=== PATIENT | female | born 1965 | race Caucasian/White ===

== ENCOUNTER → 2019-03-15 08:30 | Outpatient (CLI) | payer BC, SELFPAY ==
[2019-03-15 09:11] LABS: Add Manual Diff / Slide Review NO; Basophils Absolute Auto 100 /uL (0-100); Basophils Percent Auto 0.8 % (0-2); Eosinophils Absolute Auto 200 /uL (0-450); Eosinophils Percent Auto 2.4 % (2-4); Hematocrit 40.3 % (36-46); Hemoglobin 13.9 g/dL (12.0-16.0); Lymphocytes Absolute Auto 4000 /uL (1100-4500); Lymphocytes Percent Auto 54.7 % (25-40); Mean Corpuscular HGB Conc 34.4 % (30-36); Mean Corpuscular Hemoglobin 31.2 PG (26-34); Mean Corpuscular Volume 90.6 fL (80-100); Monocytes Absolute Auto 400 /uL (0-900); Monocytes Percent Auto 5.6 % (3-14); Neutrophils Absolute Auto 2700 /uL (1500-7000); Neutrophils Percent Auto 36.5 % (50-75); Platelet Count 264 X10^3/uL (150-400); Red Blood Cell Count 4.45 X10^6/uL (4.0-5.2); Red Cell Distribution Width 12.5 % (11.6-14.8); White Blood Cell Count 7.3 X10^3/uL (4.5-11.0)
[2019-03-15 09:48] LABS: Alanine Aminotransferase 25 IU/L (9-52); Albumin 4.2 g/dL (3.5-5.0); Albumin Globulin Ratio 1.4 (1.0-2.8); Alkaline Phosphatase 76 U/L (38-126); Aspartate Aminotransferase 21 IU/L (14-36); BUN Creatinine Ratio 15.7 (6-22); Bilirubin Total 0.4 mg/dL (0.2-1.3); Blood Urea Nitrogen 11 mg/dL (7-17); Calcium 9.4 mg/dL (8.4-10.2); Carbon Dioxide 28 mmol/L (22-32); Chloride 105 mmol/L (98-107); Cholesterol 220 mg/dL (140-199); Estimated Glomerular Filt Rate > 60.0 mL/min (>60); Globulin 2.9 g/dL (1.7-4.1); Glucose 98 mg/dL (70-100); HDL Cholesterol 38 mg/dL (40-60); HEMOLYSIS < 15 (0-50); LDL Cholesterol Calculated 151 mg/dL (<100); Potassium 4.4 mmol/L (3.4-5.1); Sodium 141 mmol/L (137-145); Total Protein 7.1 g/dL (6.3-8.2); Triglycerides 156 mg/dL (35-150)
[2019-03-15 10:16] LABS: TSH w/ Reflex to FT4 4.37 uIU/mL (0.47-4.68)
== END ==
PROVIDERS: PCP Family Medicine; Visit Provider Family Medicine
DX: F95.9 Tic disorder, unspecified (principal); Z00.00 Encounter for general adult medical examination without abnormal findings
CPT/HCPCS: 36415; 80053; 80061; 84443; 85025

== ENCOUNTER → 2019-04-12 16:21 | Outpatient (CLI) | payer BC, SELFPAY ==
--- NOTE | 2019-04-12 16:23 | DI.MG.S_ITS ---
BILATERAL DIGITAL SCREENING MAMMOGRAM 3D/2D WITH CAD: 04/12/2019 CLINICAL: Routine screening. Baseline exam. No prior exams were available for comparison. The tissue of both breasts is extremely dense, which lowers the sensitivity of mammography. Current study was also evaluated with a Computer Aided Detection (CAD) system. There is a benign intramammary node in the right breast. No significant masses, calcifications, or other findings are seen in either breast. IMPRESSION: There is no mammographic evidence of malignancy. A 1 year screening mammogram is recommended. This exam was interpreted at Station ID: [id number]. NOTE: For mammograms, a report in lay terms will be sent to the patient. Approximately 15% of breast malignancies will not be visualized mammographically. In the management of a palpable breast mass, a negative mammogram must not discourage biopsy of a clinically suspicious lesion. Electronically Signed By: Pj [email or web address]:04/12/2019 17:42:02 letter sent: Normal Exam ACR BI-RADS Category 2: Benign Finding(s) 3342F
== END ==
PROVIDERS: PCP Family Medicine; Visit Provider Family Medicine
DX: Z12.31 Encounter for screening mammogram for malignant neoplasm of breast (principal)
CPT/HCPCS: 77063; 77067

== ENCOUNTER → 2020-11-18 14:15 | Outpatient (CLI) | payer BC, SELFPAY ==
[2020-11-18 15:10] LABS: Add Manual Diff / Slide Review NO; Basophils Absolute Auto 100 /uL (0-100); Basophils Percent Auto 0.7 % (0-2); Eosinophils Absolute Auto 100 /uL (0-450); Eosinophils Percent Auto 1.4 % (2-4); Hemoglobin 14.6 g/dL (12.0-16.0); Lymphocytes Absolute Auto 3600 /uL (1100-4500); Lymphocytes Percent Auto 43.8 % (25-40); Mean Corpuscular HGB Conc 33.1 % (30-36); Mean Corpuscular Hemoglobin 30.2 PG (26-34); Monocytes Absolute Auto 400 /uL (0-900); Monocytes Percent Auto 5.4 % (3-14); Neutrophils Absolute Auto 4000 /uL (1500-7000); Neutrophils Percent Auto 48.7 % (50-75); Platelet Count 310 X10^3/uL (150-400); Red Blood Cell Count 4.83 X10^6/uL (4.0-5.2); Red Cell Distribution Width 12.6 % (11.6-14.8); White Blood Cell Count 8.1 X10^3/uL (4.5-11.0)
[2020-11-18 15:38] LABS: Alanine Aminotransferase 20 IU/L (<35); Albumin 4.5 g/dL (3.5-5.0); Albumin Globulin Ratio 1.3 (1.0-2.8); Alkaline Phosphatase 83 U/L (38-126); Aspartate Aminotransferase 26 IU/L (14-36); BUN Creatinine Ratio 18.5 (6-22); Bilirubin Total 0.4 mg/dL (0.2-1.3); Blood Urea Nitrogen 15 mg/dL (7-17); Carbon Dioxide 28 mmol/L (22-32); Chloride 105 mmol/L (98-107); Cholesterol 237 mg/dL (140-199); Estimated Glomerular Filt Rate > 60.0 mL/min (>60); Globulin 3.4 g/dL (1.7-4.1); Glucose 87 mg/dL (70-100); HDL Cholesterol 43 mg/dL (40-60); HEMOLYSIS < 15 (0-50); LDL Cholesterol Calculated 169 mg/dL (<100); Sodium 138 mmol/L (137-145); Total Protein 7.9 g/dL (6.3-8.2); Triglycerides 123 mg/dL (35-150)
[2020-11-18 17:21] LABS: TSH w/ Reflex to FT4 2.76 uIU/mL (0.47-4.68)
== END ==
PROVIDERS: PCP Family Medicine; Referring Provider Family Medicine; Visit Provider Family Medicine
DX: E78.5 Hyperlipidemia, unspecified (principal); Z13.1 Encounter for screening for diabetes mellitus; Z13.6 Encounter for screening for cardiovascular disorders
CPT/HCPCS: 36415; 80053; 80061; 84443; 85025

== ENCOUNTER 2021-10-06 13:13 | Emergency (ER) | payer BC, SELFPAY ==
[2021-10-06] VITALS (11 sets, daily range): BP systolic 137–160; BP diastolic 64–76; PULSE 79–88; RESP 5–21; TEMP 37.2; O2SAT 92–97
--- NOTE | 2021-10-06 13:20 | DI.RAD.S_ITS ---
PROCEDURE: XR CHEST 1V INDICATIONS: chest pain TECHNIQUE: One view of the chest was acquired. COMPARISON: None. FINDINGS: Surgical changes and devices: None. Lungs and pleura: Lungs are clear. No pleural effusions or pneumothorax. Mediastinum: Mediastinal contours appear normal. Heart size is normal. Bones and chest wall: No suspicious bony lesions. Overlying soft tissues appear unremarkable. IMPRESSION: Portable chest within normal limits. Dictated by: Julio Bermeo M.D. on 10/06/2021 at 12:43 Approved by: Julio Bermeo M.D. on 10/06/2021 at 12:44
[2021-10-06 13:50] LABS: Add Manual Diff / Slide Review NO; Basophils Absolute Auto 100 /uL (0-100); Basophils Percent Auto 0.9 % (0-2); Eosinophils Absolute Auto 100 /uL (0-450); Hemoglobin 14.6 g/dL (12.0-16.0); Lymphocytes Absolute Auto 3800 /uL (1100-4500); Lymphocytes Percent Auto 38.1 % (25-40); Mean Corpuscular Hemoglobin 30.1 PG (26-34); Mean Corpuscular Volume 88.5 fL (80-100); Monocytes Absolute Auto 600 /uL (0-900); Monocytes Percent Auto 5.5 % (3-14); Neutrophils Absolute Auto 5500 /uL (1500-7000); Neutrophils Percent Auto 54.5 % (50-75); Platelet Count 333 X10^3/uL (150-400); Red Blood Cell Count 4.86 X10^6/uL (4.0-5.2); Red Cell Distribution Width 12.9 % (11.6-14.8); White Blood Cell Count 10.1 X10^3/uL (4.5-11.0)
[2021-10-06 13:57] LABS: Alanine Aminotransferase 19 IU/L (<35); Albumin 4.6 g/dL (3.5-5.0); Albumin Globulin Ratio 1.3 (1.0-2.8); Alkaline Phosphatase 99 U/L (38-126); Aspartate Aminotransferase 24 IU/L (14-36); BUN Creatinine Ratio 16.7 (6-22); Bilirubin Total 0.5 mg/dL (0.2-1.3); Blood Urea Nitrogen 13 mg/dL (7-17); Calcium 9.8 mg/dL (8.4-10.2); Carbon Dioxide 30 mmol/L (22-32); Chloride 105 mmol/L (98-107); Creatine Kinase 52 U/L (30-135); Estimated Glomerular Filt Rate > 60.0 mL/min (>60); Globulin 3.5 g/dL (1.7-4.1); Glucose 92 mg/dL (70-100); HEMOLYSIS < 15 (0-50); Lipase 236 U/L (23-300); Potassium 3.9 mmol/L (3.4-5.1); Sodium 139 mmol/L (137-145); Total Protein 8.1 g/dL (6.3-8.2)
[2021-10-06 14:02] LABS: COVID19 -Nasal RAPID Negative (Negative)
[2021-10-06 14:08] LABS: Troponin I < 0.012 ng/mL (0.01-0.034)
[2021-10-06 16:20] LABS: Troponin I < 0.012 ng/mL (0.01-0.034)
--- NOTE | 2021-10-06 17:14 | ED.CHESTPAIN ---
HPI - Chest Pain General Chief Complaint: Chest Pain Stated Complaint: heart has been hurting Time Seen by Provider: 10/06/21 17:14 Source: patient Mode of arrival: Ambulatory History of Present Illness HPI narrative: 56-year-old female with no past medical history except COVID in May presenting today with chest discomfort. She is unsure how long it has been going on for but it has gotten worse she thinks. She feels a light squeezing in her chest which is worse with exertion. She says it comes and goes it sometimes is at rest sometimes with exertion. She recently traveled through airports and noticed that her chest discomfort and shortness of breath was worse with longer distances. She describes it as a left-sided squeezing chest discomfort. Even now she feels as light discomfort Related Data Previous Rx's Medication Instructions Recorded diazepam 5 mg tablet (Valium) 5 mg PO SEE INSTRUCTIONS PRN #5 tab 08/31/18 Allergies Allergy/AdvReac Type Severity Reaction Status Date / Time Penicillins Allergy Severe Anaphylaxis, Verified 10/06/21 17:47 Hives codeine [CODEINE] Allergy Mild NAUSEA Verified 11/19/20 10:04 Sulfa (Sulfonamide Allergy Mild HIVES Verified 11/19/20 10:04 Antibiotics) [SULFA (SULFONAMIDE ANTIBIOTICS)] Review of Systems Review of Systems Narrative: GENERAL: Denies chills, fatigue, malaise, fever, sweats, travel HEENT: Denies sinus pain, ear pain, sore throat, difficulty swallowing, neck pain RESPIRATORY: see HPI CARDIOVASCULAR: see HPI GASTROINTESTINAL: Denies nausea, vomiting, abdominal pain, diarrhea, constipation, melena. : Denies dysuria, frequency, incontinence, hematuria, urinary retention, flank pain. MUSCULOSKELETAL: Denies weakness, joint pain, or bony pain SKIN: No rash, no erythema, no pruritus NEUROLOGIC: Denies weakness, dizziness, headache, numbness, change in speech, confusion PSYCHIATRIC: No concerning psychosocial issues. 12 point review of systems is negative except for those stated above and HPI Patient History Surgical History History of third molar tooth extraction Status post appendectomy (~1986) Status post hysterectomy Family History Father Diabetes mellitus Grandfather Diabetes mellitus Hypertension Grandmother Hypertension Parkinson disease Mother Age: 79 Obesity Osteoarthritis Social History marital status: Smoking Status: Never smoker alcohol intake: never substance use type: does not use Smoking Status: Never smoker Exam Initial Vital Signs Initial Vital Signs: Vital Signs Temperature 98.9 F 10/06/21 13:17 Pulse Rate 82 10/06/21 13:17 Respiratory Rate 18 10/06/21 13:17 Blood Pressure 160/74 H 10/06/21 13:17 Pulse Oximetry 96 10/06/21 13:17 GENERAL: Well-appearing, well-nourished and in no acute distress. HEENT: Head atraumatic,EOMI, pupils reactive, face symmetric, moist mucous membranes CARDIOVASCULAR: Regular rate and rhythm without murmurs, rubs or gallops. RESPIRATORY: Breath sounds equal bilaterally, no wheezes rales or rhonchi. ABDOMEN: Soft, nontender. Normoactive bowel sounds all 4 quadrants. No guarding or rebound. EXTREMITIES: Normal range of motion, no clubbing or edema. Neurovascularly intact NEUROLOGICAL: Alert and oriented x4.Normal gait and speech. SKIN: Warm, dry, no laceration, no petechiae, no rashes or lesions. Scores HEART Score Heart Score history: Highly Suspicious Heart Score EKG: Normal Heart Score Age: 45-64 years old Heart Score risk factors: No known risk factors Heart Score troponin: < or = to normal limit Heart Score Total: 3 PERC Score Age greater than or equal to 50 years: Yes Heart rate greater than or equal to 100 bpm: No Room Air O2 Sat less than 95%: No Unilateral leg swelling: No Recent trauma or surgery: No Hemoptysis: No Prior PE or DVT: No Hormone Use: No Total PERC Score: 1 Course Orders Ordered: Discontinued Medications Nitroglycerin (Nitroglycerin 0.4 Mg Sl Tab) 0.4 mg SL NOW ONE Stop: 10/06/21 17:38 Last Admin: 10/06/21 18:07 Dose: 0.4 mg Documented by: SAMREEN Vital Signs Vital signs: Vital Signs - 8 hr 10/06/21 13:17 10/06/21 15:52 10/06/21 15:53 Temperature 98.9 F Pulse Rate 82 79 Respiratory Rate 18 Blood Pressure 160/74 H 137/64 Pulse Oximetry 96 97 95 12/27/21 16:00 10/06/21 16:30 10/06/21 17:00 Temperature Pulse Rate 88 84 84 Respiratory Rate Blood Pressure Pulse Oximetry 95 96 97 10/06/21 17:30 10/06/21 18:00 10/06/21 18:07 Temperature Pulse Rate 82 81 81 Respiratory Rate 5 L Blood Pressure 155/70 H Pulse Oximetry 97 97 97 MDM - Chest Pain Lab Data Result diagrams: 10/06/21 13:25 10/06/21 13:25 Labs: Lab Results 10/06/21 10/06/21 10/06/21 Range/Units 13:25 13:25 13:25 WBC 10.1 (4.5-11.0) X10^3/uL RBC 4.86 (4.0-5.2) X10^6/uL Hgb 14.6 (12.0-16.0) g/dL Hct 43.0 (36-46) % MCV 88.5 (80-100) fL MCH 30.1 (26-34) PG MCHC 34.0 (30-36) % RDW 12.9 (11.6-14.8) % Plt Count 333 (150-400) X10^3/uL Neut % (Auto) 54.5 (50-75) % Lymph % (Auto) 38.1 (25-40) % [place] % (Auto) 5.5 (3-14) % Eos % (Auto) 1.0 L (2-4) % Baso % (Auto) 0.9 (0-2) % Neut # (Auto) 5500 (5048-5404) /uL Lymph # (Auto) 3800 (6754-4467) /uL [place] # (Auto) 600 (0-900) /uL Eos # (Auto) 100 (0-450) /uL Baso # (Auto) 100 (0-100) /uL D-Dimer (<230) ng/mL Sodium 139 (137-145) mmol/L Potassium 3.9 (3.4-5.1) mmol/L Chloride 105 (98-107) mmol/L Carbon Dioxide 30 (22-32) mmol/L BUN 13 (7-17) mg/dL Creatinine 0.78 (0.52-1.04) mg/dL Estimated GFR > 60.0 (>60) mL/min BUN/Creatinine Ratio 16.7 (6-22) Glucose 92 (70-100) mg/dL Calcium 9.8 (8.4-10.2) mg/dL Magnesium 2.0 (1.6-2.3) mg/dL Total Bilirubin 0.5 (0.2-1.3) mg/dL AST 24 (14-36) IU/L ALT 19 (<35) IU/L Alkaline Phosphatase 99 (38-126) U/L Total Creatine Kinase 52 (30-135) U/L CK-MB (CK-2) TNP CK-MB (CK-2) Rel Index TNP Troponin I < 0.012 (0.01-0.034) ng/mL Total Protein 8.1 (6.3-8.2) g/dL Albumin 4.6 (3.5-5.0) g/dL Globulin 3.5 (1.7-4.1) g/dL Albumin/Globulin Ratio 1.3 (1.0-2.8) Lipase 236 (23-300) U/L SARS-CoV-2 (PCR) Negative (Negative) 10/06/21 10/06/21 Range/Units 13:25 15:50 WBC (4.5-11.0) X10^3/uL RBC (4.0-5.2) X10^6/uL Hgb (12.0-16.0) g/dL Hct (36-46) % MCV (80-100) fL MCH (26-34) PG MCHC (30-36) % RDW (11.6-14.8) % Plt Count (150-400) X10^3/uL Neut % (Auto) (50-75) % Lymph % (Auto) (25-40) % [place] % (Auto) (3-14) % Eos % (Auto) (2-4) % Baso % (Auto) (0-2) % Neut # (Auto) (1108-7810) /uL Lymph # (Auto) (4571-3322) /uL [place] # (Auto) (0-900) /uL Eos # (Auto) (0-450) /uL Baso # (Auto) (0-100) /uL D-Dimer < 200 (<230) ng/mL Sodium (137-145) mmol/L Potassium (3.4-5.1) mmol/L Chloride (98-107) mmol/L Carbon Dioxide (22-32) mmol/L BUN (7-17) mg/dL Creatinine (0.52-1.04) mg/dL Estimated GFR (>60) mL/min BUN/Creatinine Ratio (6-22) Glucose (70-100) mg/dL Calcium (8.4-10.2) mg/dL Magnesium (1.6-2.3) mg/dL Total Bilirubin (0.2-1.3) mg/dL AST (14-36) IU/L ALT (<35) IU/L Alkaline Phosphatase (38-126) U/L Total Creatine Kinase (30-135) U/L CK-MB (CK-2) CK-MB (CK-2) Rel Index Troponin I < 0.012 (0.01-0.034) ng/mL Total Protein (6.3-8.2) g/dL Albumin (3.5-5.0) g/dL Globulin (1.7-4.1) g/dL Albumin/Globulin Ratio (1.0-2.8) Lipase (23-300) U/L SARS-CoV-2 (PCR) (Negative) Imaging Data Chest x-ray: Radiologist's Impression: PROCEDURE:? XR CHEST 1V ? INDICATIONS:? chest pain ? TECHNIQUE:? One view of the chest was acquired.? ? COMPARISON:? None. ? FINDINGS:? ? Surgical changes and devices:? None.? ? Lungs and pleura:? Lungs are clear.? No pleural effusions or pneumothorax.? ? Mediastinum:? Mediastinal contours appear normal.? Heart size is normal.? ? Bones and chest wall:? No suspicious bony lesions.? Overlying soft tissues appear unremarkable.? IMPRESSION:? ? Portable chest within normal limits. ? ? ? Dictated by: Julio Bermeo M.D. on 10/06/2021 at 12:43? ECG Data Interpretation: Normal sinus rhythm rate 84 MN interval 154 QRS [address] changes or T-wave inversions Repeat EKG normal sinus rhythm rate 80 no change MDM Narrative Medical decision making narrative: Patient has been having symptoms since May she noticed that she was having more shortness of breath, over the last few days while traveling. 2- troponins and negative D-dimer. Low risk heart score. I spoke with Dr. Solano, who agrees with outpatient follow-up and outpatient stress test. At this time patient of [place] she is given aspirin I recommend taking aspirin 81 mg daily. Discharge Plan Departure Patient Disposition: Home Clinical Impression: Atypical chest pain, Stable angina Instructions: DI for Angina, DI for Atypical Chest Pain Activity Restrictions/Additional Instructions: *You have been diagnosed with atypical chest pain angina *What to do: You will need a cardiac stress test. I have spoken with Dr. Wren partner who is going to schedule this for you as soon as possible. *Continue to take medications as directed Aspirin 81 mg daily *Follow up with your primary care provider in 2-3 days or call [phone] *Return to ER if you should have increasing chest discomfort, shortness breath palpitations or any new, worsening or concerning symptoms Prescriptions: No Action diazepam [Valium] 5 mg tablet 5 mg PO SEE INSTRUCTIONS PRN (Reason: As needed for seizure activity) Qty: 5 1RF Referrals: Remington Stanton MD [Primary Care Provider] -
[2021-10-06 18:05] LABS: D Dimer < 200 ng/mL (<230)
[2021-10-06] MEDS: NITROGLYCERIN 0.4 MG SL TAB SL (18:07)
== END 2021-10-06 18:42 | disposition home or self-care (01) ==
PROVIDERS: Emergency Provider Emergency Medicine; PCP Family Medicine
DX: I20.9 Angina pectoris, unspecified (principal); Z20.822 Contact with and (suspected) exposure to COVID-19
CPT/HCPCS: 36415; 71045; 80053; 82550; 83690; 83735; 84484; 85025; 85379; 87635; 93005; 99284; C9803